=== PATIENT | female | born 1970 | race African-American/Black ===

== ENCOUNTER 2016-07-02 15:30 | Emergency (ER) | payer OTHER, MEDICARE ==
[~2016-07-02] VITALS: Ht 177.8 cm; Wt 142.9 kg
[~2016-07-02 15:30] MED LIST: AMOXICILLIN500 M3 PO; ATORVASTATIN CA10 MG PO; CIPRO 250MG250 MG PO; CYMBALTA 60 MG60 MG PO; DIFLUCAN150 MG PO; DULOXETINE30 MG PO; ESTRADIOL0.0375 MG1 TOP; FLAG500 PO; GLUCOPHAGE850 MG PO; HUMALOG100 U/ML SC; LANTUS INS100 UNITS/ SC; LISINOPRIL10 MG PO; NOVOLOG 10300 UNITS/; VALACYCLOVIR H500 M1 PO
[2016-07-02 16:00] VITALS: BP 139/77
[2016-07-02] MEDS ORDERED: HRT PO (16:25)
--- NOTE | 2016-07-02 16:27 | ED EAR COMPLAINT ---
History of Present Illness General Chief Complaint: Ear Complaints Stated Complaint: R EAR PAIN AND CLOGGED Source: patient Exam Limitations: no limitations Vital Signs & Intake/Output Vital Signs & Intake/Output Vital Signs Date Time Temp Pulse Resp B/P Pulse O2 O2 Flow FiO2 Ox Delivery Rate 07/02 1600 97.0 98 18 139/77 98 Room Air ED Intake and Output 07/03 0000 07/02 1200 Intake Total 0 Output Total Balance 0 Intake, Oral 0 Patient 315 lb Weight Allergies Coded Allergies: NO KNOWN ALLERGIES (08/24/15) Reconcile Medications Amoxicillin/Potassium Clav (Augmentin 875-125 Tablet) 875 MG-125 MG TABLET 1 TAB PO BID om Atorvastatin Calcium (Lipitor) 10 MG TAB 1 TAB PO DAILY CHOLESTEROL (Reported ) Duloxetine Hydrochloride (Cymbalta) 60 MG CAP 1 CAP PO DAILY DEPRESSION ( Reported) [HRT] 1 CAP PO DAILY HRT (Reported) Insulin Lispro, Recombinant (Humalog) 100 U/ML SHYAM 10 UNITS SC 4 TIMES/DAY DIABETES (Reported) Insulin-Lantus (Lantus Insulin) 100 UNIT/ML VIAL 45 U SC AT BEDTIME DIABETES (Reported) Lisinopril 10 MG TABLET 1 TAB PO DAILY BP (Reported) Metformin Hydochloride (Glucophage) 850 MG TAB 1 TAB PO BID DIABETES ( Reported) Tylenol With Codeine (Tylenol With Codeine #3 Tablet) 300 MG-30 MG TABLET 1 TAB PO Q4-6 PRN PRN pain Valacyclovir Hydrochloride 500 MG TAB 500 MG PO BID HERPES (Reported) Triage Note: PT TO TRIAGE WITH C/O R EAR PAIN 10/10, CONGESTION SINCE LAST NIGHT. PT AFEBRILE IN TRIAGE, VSS. NO OTHER COMPLAINTS. Triage Nurses Notes Reviewed? yes HPI: 46-year-old female with severe throbbing right ear pain and pressure sensation, she has had this pain for 2 days and is getting worse. She has had mild URI symptoms cough congestion and rhinorrhea for the last few days as well. She denies any fever. She has history of otitis media 1 year ago and I reviewed her previous records. She states the amoxicillin did not help her and she needed a second antibiotic at that time (SAMI YOUNG) Past History Travel History Traveled to [place] past 21 day No Medical History Any Pertinent Medical History? see below for history Neurological: NONE EENT: NONE Cardiovascular: hypertension Respiratory: NONE Gastrointestinal: NONE Hepatic: NONE Renal: NONE Musculoskeletal: NONE Psychiatric: depression Endocrine: IDDM NIDDM ECHO TECH/Reproductive: genital herpes, trichomoniasis, UTERINE FIBROIDS Surgical History Surgical History: cholecystectomy, hysterectomy Psychosocial History What is your primary language Trinidadian Tobacco Use: Never used Family History Hx Contributory? No (SAMI YOUNG) Review of Systems Review of Systems Constitutional: Reports: see HPI. EENTM: Reports: see HPI. Respiratory: Reports: no symptoms. Cardiovascular: Reports: no symptoms. GI: Reports: no symptoms. Genitourinary: Reports: no symptoms. Musculoskeletal: Reports: no symptoms. Skin: Reports: no symptoms. Neurological/Psychological: Reports: no symptoms. Hematologic/Endocrine: Reports: no symptoms. Immunologic/Allergic: Reports: no symptoms. All Other Systems: Reviewed and Negative (SAMI YOUNG) Physical Exam Physical Exam General Appearance: well developed/nourished Ears: Bilateral: canal normal. Comments: Well-developed well-nourished no apparent distress. HEENT: Atraumatic, extraocular motion intact Left ear tympanic membrane and external auditory canal are within normal limits. Right ear: Tympanic membrane is bulging and erythematous suppurative effusion. No perforation noted. External auditory canal is within normal limits Positive mild pharyngeal erythema and tonsillar hypertrophy without exudate Neck: Supple, mild anterior cervical lymphadenopathy Back: Nontender Respiratory: No respiratory distress clear to auscultation bilateral. Heart: Regular rate and rhythm no murmur Extremities: No edema, full range of motion Neuro: Alert and oriented x3 Psych: Mood affect normal, normal memory normal judgment. Skin: Warm and dry, no rash on exposed skin (SAMI YOUNG) Progress Differential Diagnoses I considered the following diagnoses in my evaluation of the patient: Malignant otitis externa, otitis media, mastoiditis Plan of Care: Treatment antibiotics, recommend close follow-up with primary care doctor to ensure infection is improving Initial ED EKG: none (SAMI YOUNG) Departure Departure Disposition: HOME OR SELF CARE Condition: Stable Clinical Impression Primary Impression: Otitis media of right ear Qualifiers: Otitis media type: suppurative Chronicity: acute Recurrence: not specified as recurrent Spontaneous tympanic membrane rupture: without spontaneous rupture Qualified Code: H66.001 - Acute suppurative otitis media without spontaneous rupture of ear drum, right ear Referrals: TIFFANY VASQUEZ MD (PCP/Family) Additional Instructions: Take antibiotics for your infection as directed. Use [id number] multisystem cold medication as needed. Motrin and Tylenol Tylenol with codeine as needed for pain Drink plenty of fluids. Return or follow-up with your doctor if not better in the next 5-7 days or if you're having continued worsening fevers, nausea, vomiting, shortness of breath, abdominal pain, difficulty swallowing or drinking or worsening flulike illness. Departure Forms: Customer Survey General Discharge Information Prescriptions: Current Visit Scripts Amoxicillin/Potassium Clav (Augmentin 875-125 Tablet) 1 TAB PO BID #20 TAB Tylenol With Codeine (Tylenol With Codeine #3 Tablet) 1 TAB PO Q4-6 PRN PRN pain #10 TAB (SAMI YOUNG) PA/HAND II TUBE BENDER Co-Sign Statement Statement: ED Attending supervision documentation- [] I saw and evaluated the patient. I have also reviewed all the pertinent lab results and diagnostic results. I agree with the findings and the plan of care as documented in the PA's/HAND II TUBE BENDER's documentation. [X] I have reviewed the ED Record and agree with the PA's/HAND II TUBE BENDER's documentation. [] Additions or exceptions (if any) to the PAs/HAND II TUBE BENDER's note and plan are summarized below: [] (DEYA HOUSTON,OWEN)
[2016-07-02] MEDS ORDERED: AUGMENTIN 875-1 EACH PO (16:31)
[2016-07-02] MEDS ORDERED: TYLENOL WITH C1 EACH PO (16:31)
== END 2016-07-02 16:38 ==
LOC: ERH 15:30
DX: H66.91 Otitis media, unspecified, right ear (principal)

== ENCOUNTER 2016-07-11 12:15 | Emergency (ER) | payer OTHER, MEDICARE ==
[~2016-07-11] VITALS: Ht 177.8 cm; Wt 145.2 kg
[~2016-07-11 12:15] MED LIST changes: +AUGMENTIN 875-1 EACH PO; +HRT PO; +TYLENOL WITH C1 EACH PO
[2016-07-11 12:20] VITALS: BP 111/75
[2016-07-11] MEDS ORDERED: ULTRAM50 M1 PO (14:24)
[2016-07-11] MEDS ORDERED: BACTRIM DS TAB1 EACH PO (14:24)
--- NOTE | 2016-07-11 14:26 | ED EAR COMPLAINT ---
History of Present Illness General Chief Complaint: Ear Complaints Stated Complaint: RIGHT EAR PAIN Source: patient, old records Exam Limitations: no limitations Vital Signs & Intake/Output Vital Signs & Intake/Output Vital Signs Date Time Temp Pulse Resp B/P Pulse O2 O2 Flow FiO2 Ox Delivery Rate 07/11 1220 96.7 105 18 111/75 97 Room Air Allergies Coded Allergies: NO KNOWN ALLERGIES (08/24/15) Reconcile Medications Amoxicillin/Potassium Clav (Augmentin 875-125 Tablet) 875 MG-125 MG TABLET 1 TAB PO BID om Atorvastatin Calcium (Lipitor) 10 MG TAB 1 TAB PO DAILY CHOLESTEROL (Reported ) Duloxetine Hydrochloride (Cymbalta) 60 MG CAP 1 CAP PO DAILY DEPRESSION ( Reported) [HRT] 1 CAP PO DAILY HRT (Reported) Insulin Lispro, Recombinant (Humalog) 100 U/ML SHYAM 10 UNITS SC 4 TIMES/DAY DIABETES (Reported) Insulin-Lantus (Lantus Insulin) 100 UNIT/ML VIAL 45 U SC AT BEDTIME DIABETES (Reported) Lisinopril 10 MG TABLET 1 TAB PO DAILY BP (Reported) Metformin Hydochloride (Glucophage) 850 MG TAB 1 TAB PO BID DIABETES ( Reported) Tylenol With Codeine (Tylenol With Codeine #3 Tablet) 300 MG-30 MG TABLET 1 TAB PO Q4-6 PRN PRN pain Valacyclovir Hydrochloride 500 MG TAB 500 MG PO BID HERPES (Reported) Triage Note: 46 Y/O FEMALE C/O CONTINUED R EAR PAIN; WAS DIAGNOSED WITH EAR INFECTION ON 07/02/16 AND STATES SHE FINISHED THE ANTIBIOTIC AND PAIN MEDICATION WITH NO RELIEF - "IT HURTS, ITS POPPING AND ITS CLOGGED". AFEBRILE. Triage Nurses Notes Reviewed? yes HPI: PT presents for evaluation of a right ear pain that began in July 02. She was treated with a course of Augmentin and Tylenol with Codeine. She states that her pain is still present. In addition she feels a clicking or popping when she chews or yawns. She denies any associated fever, cold symptoms or drainage from the ear. The pain is described as sharp severe and constant. Nothing Seems to make it feel better. Past History Travel History Traveled to [place] past 21 day No Medical History Any Pertinent Medical History? 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 No Review of Systems Review of Systems Constitutional: Reports: no symptoms. EENTM: Reports: see HPI. Respiratory: Reports: no symptoms. Cardiovascular: Reports: no symptoms. GI: Reports: no symptoms. Genitourinary: Reports: no symptoms. Musculoskeletal: Reports: no symptoms. Skin: Reports: no symptoms. Neurological/Psychological: Reports: no symptoms. Hematologic/Endocrine: Reports: no symptoms. Immunologic/Allergic: Reports: no symptoms. All Other Systems: Reviewed and Negative Physical Exam Physical Exam Ears: Right: other. Comments: Gen.: Well-nourished, well-developed, no acute respiratory distress. Head: Normocephalic, atraumatic. 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 Neck: Supple, full range of motion, no goiter Lungs: Respirations unlabored Back: Normal range of motion Extremities: Normal range of motion grossly Neurologic: Cranial nerves grossly intact, speech is clear, stable gait Skin: warm and dry Psychiatric: Calm, cooperative, no apparent delusions or hallucinations Lymphatic: No cervical lymphadenopathy Progress Differential Diagnoses I considered the following diagnoses in my evaluation of the patient: Otitis media, otitis externa, TMJ syndrome, referred dental pain Plan of Care: abx, pain control, dental f/u, pmd f/u Initial ED EKG: none Departure Departure Disposition: HOME OR SELF CARE Condition: Stable Clinical Impression Primary Impression: Otalgia, right ear Referrals: TIFFANY VASQUEZ MD (PCP/Family) Additional Instructions: Bactrim as prescribed. Tramadol as needed for ear pain. Follow-up with a dentist as soon as possible for evaluation of possible right TMJ syndrome. Otherwise follow-up with your primary care doctor if your ear pain does not improve with additional antibiotics. Return if any concerns or sudden worsening. Departure Forms: Customer Survey General Discharge Information Prescriptions: Current Visit Scripts Sulfamethoxazole/Trimethoprim (Bactrim Ds Tablet) 1 TAB PO BID #14 TAB Tramadol HCl (Ultram) 1-2 TAB PO Q6P PRN PAIN #20 TAB
== END 2016-07-11 14:37 ==
LOC: ERH 12:15
DX: H92.01 Otalgia, right ear (principal)